=== PATIENT | female | born 1985 | race Caucasian/White ===

== ENCOUNTER 2021-10-25 19:30 | Emergency (ER) | payer BC ==
[2021-10-25] MEDS ORDERED: Ketorolac Tromethamine 30 MG/ML VIAL ONE (22:07)
[2021-10-25] MEDS ORDERED: Acetaminophen 500 MG TAB ONE (22:08)
[2021-10-27 00:55] LABS: SARS-CoV-2 PCR by NAA DETECTED (NotDetected)
== END 2021-10-25 23:04 | disposition home or self-care (01) ==
LOC: CSHERS 19:30
DX: U07.1 COVID-19 (principal); M25.562 Pain in left knee
CPT/HCPCS: 96372; J1885; U0003; U0005